=== PATIENT | male | born 1955 | race Caucasian/White ===

== ENCOUNTER 2021-07-20 20:11 | Emergency (ER) | payer SELFPAY | END 2021-07-20 22:56 | disposition left against medical advice (07) | LOC: ERS 20:11 | DX: R22.42 Localized swelling, mass and lump, left lower limb (principal); Z86.718 Personal history of other venous thrombosis and embolism; Z87.891 Personal history of nicotine dependence; Z79.01 Long term (current) use of anticoagulants; Z79.899 Other long term (current) drug therapy | CPT/HCPCS: 76936 ==